=== PATIENT | female | born 1960 | race Caucasian/White ===

== ENCOUNTER 2017-08-21 12:23 | Inpatient (IN) ==
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
[2017-08-21 13:20] LABS: Bilirubin,Urine Negative (Negative); Blood,Urine Negative (Negative); Clarity,Urine Clear (Clear); Color,Urine Yellow (Yellow); Glucose,Urine (UA) Normal (Normal); Ketones,Urine Negative (Negative); Leukocyte Esterase,Urine Trace (Negative); Nitrite,Urine Negative (Negative); Protein,Urine Negative (Neg-Trace); Specific Gravity,Urine 1.018 (1.010-1.025); Urobilinogen,Urine Normal (Normal)
[2017-08-21 13:28] LABS: Squamous Epithelial Cell,Urine Many per lpf (None-Few)
[2017-08-21 13:29] LABS: Basophils # 0.1 K/mcL (0.0-0.2); Basophils % 1.7 %; Eosinophils # 0.2 K/mcL (0.0-0.6); Eosinophils % 2.9 %; Hematocrit 49.2 % (35.3-44.9); Hemoglobin 16.6 g/dL (11.5-15.4); Immature Granulocytes % 0.4 % (0-4); Lymphocytes # 1.6 K/mcL (0.6-4.6); Lymphocytes % 18.8 %; Mean Corpuscular HGB Conc 33.7 g/dL (31.6-35.5); Mean Corpuscular Volume 91.8 fL (83.0-100.0); Mean Platelet Volume 9.3 fL (9.4-12.4); Monocytes # 0.3 K/mcL (0.0-1.3); Platelet Count 510 K/mcL (140-400); Red Blood Count 5.36 M/mcL (3.82-4.97); Red Cell Distribution Width 14.4 % (11.5-14.5); Segmented Neutrophils % 72.2 %
[2017-08-21 13:29] LABS: Bacteria,Urine Moderate per hpf (None-Few); WBC,Urine 0-3 per hpf (0-3)
[2017-08-21 13:38] LABS: Amphetamine Screen,Urine Negative ng/mL (Cutoff=1000); Barbiturate Screen,Urine Negative ng/mL (Cutoff=200); Benzodiazepines Screen,Urine Negative ng/mL (Cutoff=200); Cannabinoid Screen,Urine Negative ng/mL (Cutoff = 50); Cocaine Screen,Urine Negative ng/mL (Cutoff= 300); Opiate Screen,Urine Negative ng/mL (Cutoff=300); Phencyclidine Screen,Urine Negative ng/mL (Cutoff=25)
[2017-08-21 13:39] LABS: Calcium 9.7 mg/dL (8.6-10.3); Carbon Dioxide 26 mEq/L (23-29); Chloride 106 mEq/L (98-107); Potassium 4.1 mEq/L (3.5-5.1); Sodium 140 mEq/L (136-145)
[2017-08-21 13:43] LABS: Acetaminophen < 1.0 mcg/mL (10-30); Ethanol < 10 mg/dL (0-10); Salicylate < 5.0 mg/dL (15.0-30.0)
[2017-08-21 13:45] LABS: BUN/Creatinine Ratio 17 (6-26); Blood Urea Nitrogen 18 mg/dL (6-20); Glucose 108 mg/dL (70-105); Osmolality,Calculated 292 (280-300); eGFR For African Americans > 60 (> 60); eGFR For Non-African Americans 52 (> 60)
[2017-08-21] MEDS ORDERED: hydrOXYzine pamoate 25 MG CAPSULE PO PRN (15:10)
[2017-08-21] MEDS ORDERED: Mag Hydrox/Al Hydrox/Simeth 30 ML UDC PO PRN (15:13)
[2017-08-21] MEDS ORDERED: Haloperidol Lactate 5 MG/ML VIAL IM PRN (15:13)
[2017-08-21] MEDS ORDERED: *HR* LORazepam 1 MG TABLET PO PRN (15:13)
[2017-08-21] MEDS ORDERED: *HR* LORazepam 2 MG/ML VIAL IM PRN (15:13)
[2017-08-21] MEDS ORDERED: MOM Conc 10 ML UD.LIQ PO PRN (15:13)
[2017-08-21] MEDS: traZODone 50 MG TABLET PO PRN (20:58)
[2017-08-21] MEDS ORDERED: DOXEPIN HCL 50 MG PO SCH (21:00)
[2017-08-22] MEDS: Propranolol LA (24 HR) 60 MG CAP.SA.24H PO SCH (08:34)
[2017-08-22] MEDS: ARIPiprazole 10 MG TABLET PO SCH (08:34)
[2017-08-22] MEDS: Acetaminophen 325 MG TABLET PO PRN (11:31)
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
[2017-08-22] MEDS: traZODone 50 MG TABLET PO PRN (20:43)
[2017-08-23] MEDS: ARIPiprazole 10 MG TABLET PO SCH (08:27)
[2017-08-23] MEDS: Propranolol LA (24 HR) 60 MG CAP.SA.24H PO SCH (08:27)
--- NOTE | 2017-08-23 13:24 | Psychiatry Progress Note ---
Date of Encounter: 08/23/17 Time of Encounter: 12:30 Subjective Interval history: When I asked how the patient is doing she tells me "good". She states that she still feels anxious and unsafe on the unit. She is slightly paranoid regarding others and had presented initially to the hospital with vague homicidal ideation secondary to this paranoia and active psychosis at the time. She tells me she is a light sleeper and hears much the noise going on on the unit at night and is concerned about some of the men that are on the unit. She was moved down to a private room directly in front of the nurses station from the male patients in another hallway in order to help with her anxiety and discomfort. She states that she is feeling a little less depressed. She states that she knows to take her medications regularly and not miss doses, as that is probably what happened causing her to get increasingly depressed and psychotic. She is attending groups and participating on the unit. She states that she is trying not to isolate so much and will do the same when she gets home in order not to get more depressed. She is feeling less hopeless and helpless. She denies any active suicidal or homicidal ideation. She has a friend coming to visit this afternoon. She is hopeful to be more stabilized after this weekend and potentially be discharged early next week. Objective: Exam Patient orientation: Yes Person, Yes Time, Yes Place, Yes Circumstance Level of alertness: Sedated Patient appearance: Appropriate, Well Groomed Behavior: anxious Psychomotor activity: Slowed Eye contact: Maintains Eye Contact Mood description: Depressed Affect description: congruent with mood Speech pattern: Normal rate, Normal rhythm, Normal tone Speech volume: Normal Thought process: Linear (Improved) Thought content: Yes Intact Perceptual disturbances: Yes Reacting to internal stimuli (less) Judgment: Fair Insight: Partial Results - Vital Signs Vital Signs: Temp Pulse Resp BP Pulse Ox 98.6 F 73 14 120/73 95 08/23/17 09:00 08/23/17 09:00 08/23/17 09:00 08/23/17 09:00 08/21/17 12:28 Assessment and Plan (1) Depression, major, recurrent, moderate Current visit: No Status: Acute Plan: Continue hospitalization, Close observation, Suicide Precautions per unit protocol, Encourage participation in unit milieu, Group Therapy, Monitor sleep Risks, benefits, side effects, alternatives discussed w/pt: Yes (Continue outpatient medication) Patient agreeable to treatment: Yes (2) PTSD (post-traumatic stress disorder) Current visit: No Status: Acute Risks, benefits, side effects, alternatives discussed w/pt: Yes Patient agreeable to treatment: Yes Consult Discharge Plan - Plan Referrals: [facility] [Outside] - 08/28/17 9:45 am (The above appointment is with Alaina Toussaint for outpatient mental health counseling services. You will also see Josette eFlton for outpatient psychiatric assessment and medication management services on 09/02/2017 at 10:30 AM.)
[2017-08-23] MEDS: traZODone 50 MG TABLET PO PRN (20:30)
[2017-08-24] MEDS: Propranolol LA (24 HR) 60 MG CAP.SA.24H PO SCH (08:03)
[2017-08-24] MEDS: ARIPiprazole 10 MG TABLET PO SCH (08:03)
--- NOTE | 2017-08-24 13:55 | Psychiatry Progress Note ---
Date of Encounter: 08/24/17 Time of Encounter: 13:50 Subjective Interval history: When asked how the patient is doing today she tells me "I am good". She states that she is starting to feel much better. She is hopeful to go home soon. She is back on medications and feel stable in her thoughts and her mood. She denies any adverse side effects of her medications. She tells me that she slept better last night and was less anxious on the unit. She feels more relaxed and calm here. She denies any suicidal ideation. She denies any homicidal ideation. She talks about the importance of taking her medications and that she will continue to be compliant and will consider doing outpatient therapy to deal with her PTSD and anxiety. No auditory or visual hallucinations. Objective: Exam Patient orientation: Yes Person, Yes Time, Yes Place, Yes Circumstance Level of alertness: Alert Patient appearance: Appropriate, Well Groomed (improved) Additional observations: More spontaneous today and brighter affect Behavior: calm Psychomotor activity: Normal Eye contact: Maintains Eye Contact Mood description: Anxious Affect description: congruent with mood Speech pattern: Normal rate, Normal rhythm, Normal tone, Appropriate Speech volume: Normal Thought process: Intact, Linear, Goal Oriented Thought content: Yes Intact Judgment: Fair Insight: Partial Results - Vital Signs Vital Signs: Temp Pulse Resp BP Pulse Ox 98.3 F 67 16 114/74 95 08/24/17 08:11 08/24/17 08:11 08/24/17 08:11 08/24/17 08:11 08/21/17 12:28 Assessment and Plan (1) Depression, major, recurrent, moderate Current visit: No Status: Acute Plan: Continue hospitalization, Close observation, Suicide Precautions per unit protocol, Encourage participation in unit milieu, Group Therapy, Monitor sleep Risks, benefits, side effects, alternatives discussed w/pt: Yes (Continue outpatient medication) Patient agreeable to treatment: Yes (2) PTSD (post-traumatic stress disorder) Current visit: No Status: Acute Risks, benefits, side effects, alternatives discussed w/pt: Yes Patient agreeable to treatment: Yes (Talk therapy) Consult Discharge Plan - Plan Referrals: [facility] [Outside] - 08/28/17 9:45 am (The above appointment is with Alaina Toussaint for outpatient mental health counseling services. You will also see Josette Felton for outpatient psychiatric assessment and medication management services on 09/02/2017 at 10:30 AM.)
[2017-08-24] MEDS: Acetaminophen 325 MG TABLET PO PRN (21:37)
[2017-08-25] MEDS: ARIPiprazole 10 MG TABLET PO SCH (08:50)
[2017-08-25] MEDS: Propranolol LA (24 HR) 60 MG CAP.SA.24H PO SCH (08:51)
[2017-08-25 10:35] VITALS: BP 106/65
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
== END 2017-08-25 14:00 | disposition home or self-care (01) | DRG 751 ==
LOC: EMEROO 12:23 → 1ANU 14:30
PROVIDERS: ADMIT Psychiatry & Neurology Psychiatry; ATTEND Psychiatry & Neurology Psychiatry